=== PATIENT | female | born 2000 | race Caucasian/White ===

== ENCOUNTER 2019-10-20 10:52 | Emergency (ER) | payer OTHER, SELFPAY ==
[2019-10-20 10:57] VITALS: BP 128/80; PULSE 87; RESP 15; TEMP 36.8; O2SAT 98; BMI 34.9
--- NOTE | 2019-10-20 11:49 | DI.RAD.S_ITS ---
PROCEDURE: XR CHEST 2V INDICATIONS: alcoholic, vomiting blood, remote swallowed FB TECHNIQUE: 2 views of the chest were acquired. COMPARISON: None. FINDINGS: Surgical changes and devices: None. Lungs and pleura: Lungs are clear. No pleural effusions or pneumothorax. Mediastinum: Mediastinal contours are normal. Heart size is normal. Bones and chest wall: No suspicious bony abnormalities. Soft tissues appear unremarkable. IMPRESSION: No acute process. Dictated by: Joshua Schmitz M.D. on 10/20/2019 at 11:20 Approved by: Joshua Schmitz M.D. on 10/20/2019 at 11:20
--- NOTE | 2019-10-20 11:49 | DI.RAD.S_ITS ---
PROCEDURE: XR ABDOMEN MIN 2V INDICATIONS: vomiting blood, abdominal pain, left chest pain TECHNIQUE: 2 views of the abdomen were acquired. COMPARISON: None. FINDINGS: Surgical changes and devices: Intrauterine device. Bowel: No pneumoperitoneum. The bowel gas pattern is normal. Soft tissues: No masses; visualized solid organ contours appear normal in size. No suspicious abdominal calcifications. Bones: No suspicious bony abnormalities. IMPRESSION: No acute process. Dictated by: Joshua Schmitz M.D. on 10/20/2019 at 11:20 Approved by: Johsua Schmitz M.D. on 10/20/2019 at 11:21
[2019-10-20] MEDS: SODIUM CHLORIDE 0.9% 1,000 ML 1000 ML IV (12:07)
[2019-10-20] MEDS: ONDANSETRON 4 MG/2 ML INJ IV (12:07)
[2019-10-20 12:13] LABS: Add Manual Diff / Slide Review NO; Basophils Absolute Auto 0 /uL (0-100); Basophils Percent Auto 0.5 % (0-2); Eosinophils Absolute Auto 100 /uL (0-450); Eosinophils Percent Auto 0.9 % (2-4); Hematocrit 42.3 % (36-46); Hemoglobin 14.4 g/dL (12.0-16.0); Lymphocytes Absolute Auto 1800 /uL (1100-4500); Lymphocytes Percent Auto 23.5 % (25-40); Mean Corpuscular Hemoglobin 32.4 PG (26-34); Mean Corpuscular Volume 95.2 fL (80-100); Monocytes Absolute Auto 500 /uL (0-900); Monocytes Percent Auto 6.8 % (3-14); Neutrophils Absolute Auto 5100 /uL (1500-7000); Neutrophils Percent Auto 68.3 % (50-75); Platelet Count 215 X10^3/uL (150-400); Red Blood Cell Count 4.44 X10^6/uL (4.0-5.2); Red Cell Distribution Width 13.7 % (11.6-14.8); White Blood Cell Count 7.5 X10^3/uL (4.5-11.0)
[2019-10-20 12:20] LABS: PTT Partial Thromboplastin Tim 31 SECONDS (26.4-36.2)
[2019-10-20 12:21] LABS: Alanine Aminotransferase 21 IU/L (<35); Albumin 4.6 g/dL (3.5-5.0); Albumin Globulin Ratio 1.6 (1.0-2.8); Alkaline Phosphatase 50 U/L (38-126); Aspartate Aminotransferase 26 IU/L (14-36); BUN Creatinine Ratio 18.9 (6-22); Bilirubin Total 0.6 mg/dL (0.2-1.3); Blood Urea Nitrogen 10 mg/dL (7-17); Calcium 9.3 mg/dL (8.4-10.2); Carbon Dioxide 26 mmol/L (22-32); Chloride 108 mmol/L (98-107); Estimated Glomerular Filt Rate > 60.0 mL/min (>60); Ethanol (ETOH) < 10 mg/dL; Globulin 2.9 g/dL (1.7-4.1); Glucose 97 mg/dL (70-100); HEMOLYSIS < 15 (0-50); Lipase 46 U/L (23-300); Potassium 4.2 mmol/L (3.4-5.1); Sodium 138 mmol/L (137-145); Total Protein 7.5 g/dL (6.3-8.2)
[2019-10-20 12:37] VITALS: BP 123/66; PULSE 82; O2SAT 99
[2019-10-20 13:00] VITALS: BP 143/73; PULSE 77; O2SAT 99
[2019-10-20 13:30] VITALS: BP 133/61; PULSE 75; RESP 24; O2SAT 100
[2019-10-20 13:37] LABS: UR Morphine/Opiate cutoff 300 Negative (Negative); Ur Creatinine Normal (Normal); Ur Specific Gravity Normal (Normal); Urine Amphetamines Negative (Negative); Urine Barbiturates Negative (Negative); Urine Benzodiazepines Negative (Negative); Urine Cocaine Negative (Negative); Urine MDMA Negative (Negative); Urine Methadone Negative (Negative); Urine Methamphetamines Negative (Negative); Urine Oxycodone Negative (Negative); Urine Phencyclidine Negative (Negative); Urine Tetrahydrocannabinol Positive (Negative); Urine Tricyclic Antidepressant Negative (Negative); Urine pH Normal (Normal)
--- NOTE | 2019-10-20 14:08 | ED.SKABFB ---
HPI - Skin/Abscess/Foreign Bdy General Chief complaint: Skin/Abscess/Foreign Body Stated complaint: Swallowed object t-5 spitting blood Time Seen by Provider: 10/20/19 11:34 Source: patient Mode of arrival: Ambulatory Limitations: no limitations History of Present Illness HPI narrative: CC: I swallowed my septal ring. HPI: Patient is a 18-year-old female who states that she has been spitting up blood after swallowing her is nasal septal ring. She states that this morning the ring was gone. The patient states that he has been gone for 1 week. She thought that she swallowed it recently in last night. She woke up with pain in her right chest and that she was throwing up and spitting up blood. She describes the pain in her chest as being sharp and stabbing. When asked to quantify the amount of blood she became angry and stated that it was all blood. I asked the patient if she was intoxicated and drinking alcohol last night and she confirmed this. She states that she has been drinking for the last 2 days. The patient denies a history of liver disease or cirrhosis. She states that she used to drink daily and now drinks approximately 2 times per week. She denies ever being told that she had alcoholic hepatitis, cirrhosis. She denies any melena or she states that since waking up at 8:00 a.m. this morning she is vomited at least 7 times. hematochezia. She has had no diarrhea or pancreatitis. She denies a history of diabetes mellitus hypertension congenital heart disease or heart murmur. She admits to a dry unproductive cough mild shortness of breath. She has had no urinary symptoms and denies being . The police aguilar admits to smoking cigarettes and marijuana. Related Data Previous Rx's Medication Instructions Recorded ondansetron HCl [Zofran] 4 mg PO Q6H PRN #12 tab 10/20/19 pantoprazole [Protonix] 40 mg PO DAILY #20 tab 10/20/19 Allergies Allergy/AdvReac Type Severity Reaction Status Date / Time Penicillins Allergy Verified 10/20/19 11:00 Review of Systems Review of Systems Narrative: The patient's review of systems were all negative except those mentioned in the history of present illness. Patient History Social History Smoking Status: Current every day smoker Smoking Status: Current every day smoker alcohol intake frequency: a few times a week Substance Use Type: marijuana Exam Narrative Exam Narrative: PHYSICAL EXAM: CONSTITUTIONAL: Awake, Alert, Oriented, Coherent, in NAD. Does not appear toxic or ill. HEAD: AT/NC EENT: PERRL, FROM of eyes, no discharge, no nystagmus NOSE:No epistaxis or nasal drainage MOUTH:Oral mucosa is moist and pink, posterior pharynx is without erythema or exudate. There is no foreign body or ring noted in her posterior pharynx or throat NECK: Supple, no obvious JVD, Trachea is midline without stridor, no palpable LN. SPINE: Palpation of the cervical, Thoracic, Lumbar or Sacral spine reveals no gross deformity or tenderness. No CVA tenderness. THORAX: No deformity, retractions, chest wall tenderness. LUNGS: Clear, symmetrical breath sounds without respiratory distress. HEART: Normal heart tones, regular rhythm and rate without murmur. ABDOMEN: Do tender in the right upper quadrant greater than in the right lower quadrant. The patient has some mild right posterior costovertebral angle tenderness. There is no guarding rebound or rigidity noted. Bowel sounds are no EXTREMITIES: No edema, deformity, tenderness or cyanosis. SKIN: No rash, bruising, petechiae or purpura. NEURO: Awake, alert, oriented, conversive, cranial nerves II-XII are symmetrical , moves all 4 extremities and is ambulatory. MENTAL HEALTH: Does not appear anxious or depressed. Initial Vital Signs Initial Vital Signs: Vital Signs Temperature 98.2 F 10/20/19 10:57 Pulse Rate 87 10/20/19 10:57 Respiratory Rate 15 10/20/19 10:57 Blood Pressure 128/80 10/20/19 10:57 Pulse Oximetry 98 10/20/19 10:57 Course Course Course Narrative: 1400: Patient's chest x-ray revealed no acute process. No foreign body in her chest. Abdominal x-rays revealed no acute pathology or process no foreign body in her abdomen. She has normal gas patterns without any evidence of free air. The patient seemed to be mildly upset that I was asking questions about her drinking alcohol and that her alcohol contributed to her complaints. Orders Ordered: Discontinued Medications Sodium Chloride (Normal Saline 0.9%) 1,000 mls @ 1,000 mls/hr IV BOLUS ONE Stop: 10/20/19 12:52 Last Infusion: 10/20/19 13:30 Dose: 0 mls/hr Documented by: Admin: 10/20/19 12:07 Dose: 1,000 mls/hr Documented by: GENARO Ondansetron HCl (Zofran) 4 mg IV NOW ONE Stop: 10/20/19 11:50 Last Admin: 10/20/19 12:07 Dose: 4 mg Documented by: GENARO Pantoprazole Sodium (Protonix) 40 mg IV NOW ONE Stop: 10/20/19 14:10 Last Admin: 10/20/19 14:31 Dose: 40 mg Documented by: GENARO Vital Signs Vital signs: Vital Signs - 8 hr 10/20/19 10:57 10/20/19 12:37 10/20/19 13:00 Temperature 98.2 F Pulse Rate 87 82 77 Respiratory Rate 15 Blood Pressure 128/80 123/66 143/73 H Pulse Oximetry 98 99 99 10/20/19 13:30 10/20/19 14:39 Temperature Pulse Rate 75 82 Respiratory Rate 24 23 Blood Pressure 133/61 168/95 H Pulse Oximetry 100 99 MDM - Skin/Abscess/Foreign Bdy Medical Records Attestation: I reviewed the patient's medical records. Lab Data Attestation: I reviewed the patient's lab results. Result diagrams: 10/20/19 11:55 10/20/19 11:55 Labs: Lab Results 10/20/19 10/20/19 10/20/19 Range/Units 11:55 11:55 11:55 WBC (4.5-11.0) X10^3/uL RBC (4.0-5.2) X10^6/uL Hgb (12.0-16.0) g/dL Hct (36-46) % MCV (80-100) fL MCH (26-34) PG MCHC (30-36) % RDW (11.6-14.8) % Plt Count (150-400) X10^3/uL Neut % (Auto) (50-75) % Lymph % (Auto) (25-40) % Robeson % (Auto) (3-14) % Eos % (Auto) (2-4) % Baso % (Auto) (0-2) % Neut # (Auto) (3203-2882) /uL Lymph # (Auto) (7636-0785) /uL Robeson # (Auto) (0-900) /uL Eos # (Auto) (0-450) /uL Baso # (Auto) (0-100) /uL PT 11.0 (10.1-12.7) SECONDS INR 1.0 (0.9-1.3) APTT 31 (26.4-36.2) SECONDS Sodium 138 (137-145) mmol/L Potassium 4.2 (3.4-5.1) mmol/L Chloride 108 H (98-107) mmol/L Carbon Dioxide 26 (22-32) mmol/L BUN 10 (7-17) mg/dL Creatinine 0.53 (0.52-1.04) mg/dL Estimated GFR > 60.0 (>60) mL/min BUN/Creatinine Ratio 18.9 (6-22) Glucose 97 (70-100) mg/dL Lactate 1.0 (0.7-2.1) mmol/L Calcium 9.3 (8.4-10.2) mg/dL Total Bilirubin 0.6 (0.2-1.3) mg/dL AST 26 (14-36) IU/L ALT 21 (<35) IU/L Alkaline Phosphatase 50 (38-126) U/L Total Protein 7.5 (6.3-8.2) g/dL Albumin 4.6 (3.5-5.0) g/dL Globulin 2.9 (1.7-4.1) g/dL Albumin/Globulin Ratio 1.6 (1.0-2.8) Lipase 46 (23-300) U/L U Opiates 300ng/mL cut (Negative) Ur Oxycodone Screen (Negative) Urine Methadone Screen (Negative) Ur Barbiturates Screen (Negative) U Tricyclic Antidepress (Negative) Ur Phencyclidine Scrn (Negative) Ur Amphetamines Screen (Negative) U Methamphetamines Scrn (Negative) Ur MDMA Scrn (Ecstasy) (Negative) U Benzodiazepines Scrn (Negative) Urine Cocaine Screen (Negative) U Marijuana (THC) Screen (Negative) Ethyl Alcohol < 10 ( - 10) mg/dL 10/20/19 10/20/19 Range/Units 11:55 13:22 WBC 7.5 (4.5-11.0) X10^3/uL RBC 4.44 (4.0-5.2) X10^6/uL Hgb 14.4 (12.0-16.0) g/dL Hct 42.3 (36-46) % MCV 95.2 (80-100) fL MCH 32.4 (26-34) PG MCHC 34.0 (30-36) % RDW 13.7 (11.6-14.8) % Plt Count 215 (150-400) X10^3/uL Neut % (Auto) 68.3 (50-75) % Lymph % (Auto) 23.5 L (25-40) % Robeson % (Auto) 6.8 (3-14) % Eos % (Auto) 0.9 L (2-4) % Baso % (Auto) 0.5 (0-2) % Neut # (Auto) 5100 (9273-4961) /uL Lymph # (Auto) 1800 (5348-5601) /uL Robeson # (Auto) 500 (0-900) /uL Eos # (Auto) 100 (0-450) /uL Baso # (Auto) 0 (0-100) /uL PT (10.1-12.7) SECONDS INR (0.9-1.3) APTT (26.4-36.2) SECONDS Sodium (137-145) mmol/L Potassium (3.4-5.1) mmol/L Chloride (98-107) mmol/L Carbon Dioxide (22-32) mmol/L BUN (7-17) mg/dL Creatinine (0.52-1.04) mg/dL Estimated GFR (>60) mL/min BUN/Creatinine Ratio (6-22) Glucose (70-100) mg/dL Lactate (0.7-2.1) mmol/L Calcium (8.4-10.2) mg/dL Total Bilirubin (0.2-1.3) mg/dL AST (14-36) IU/L ALT (<35) IU/L Alkaline Phosphatase (38-126) U/L Total Protein (6.3-8.2) g/dL Albumin (3.5-5.0) g/dL Globulin (1.7-4.1) g/dL Albumin/Globulin Ratio (1.0-2.8) Lipase (23-300) U/L U Opiates 300ng/mL cut Negative (Negative) Ur Oxycodone Screen Negative (Negative) Urine Methadone Screen Negative (Negative) Ur Barbiturates Screen Negative (Negative) U Tricyclic Antidepress Negative (Negative) Ur Phencyclidine Scrn Negative (Negative) Ur Amphetamines Screen Negative (Negative) U Methamphetamines Scrn Negative (Negative) Ur MDMA Scrn (Ecstasy) Negative (Negative) U Benzodiazepines Scrn Negative (Negative) Urine Cocaine Screen Negative (Negative) U Marijuana (THC) Screen Positive H (Negative) Ethyl Alcohol ( - 10) mg/dL Point of Care Testing Test Results Negative Urine Dip Bedside Urine Glucose Negative Bedside Urine Bilirubin - Negative Bedside Urine Ketone - Negative Urine Specific [place] 1.010 Bedside Urine Occult Blood - Negative Bedside Urine pH 8.5 Bedside Urine Protein +/- 15 Bedside Urine Urobilinogen - Negative Bedside Urine Nitrite - Negative Bedside Urine Leukocytes - Negative Esterase Discharge Plan Departure Patient Disposition: Home Clinical Impression: Atypical chest pain, Carissa-Geller syndrome Hematemesis Qualifiers: Nausea presence: unspecified Qualified Code(s): K92.0 - Hematemesis Abdominal pain Qualifiers: Abdominal location: generalized Qualified Code(s): R10.84 - Generalized abdominal pain Discharge Date/Time: 10/20/19 15:01 Activity Restrictions/Additional Instructions: 1. Take the Protonix as prescribed to help reduce acid secretion 2. Take Zofran as prescribed to help with nausea and or vomiting. 3. If you start vomiting gross blood frequently or you develop bloody stools or black tarry stools you need to return to the emergency department or proceed to the nearest emergency department for further evaluation. 4. If you develop dizziness lightheadedness racing of your heart palpitations worsening shortness of breath or chest pain pass out you need to return to the emergency department for further evaluation. Prescriptions: New ondansetron HCl [Zofran] 4 mg tablet 4 mg PO Q6H PRN (Reason: nausea and vomiting) Qty: 12 RF: 0 pantoprazole [Protonix] 40 mg tablet,delayed release (DR/EC) 40 mg PO DAILY Qty: 20 RF: 0
[2019-10-20] MEDS: PANTOPRAZOLE 40 MG VIAL IV (14:31)
[2019-10-20 14:39] VITALS: BP 168/95; PULSE 82; RESP 23; O2SAT 99
== END 2019-10-20 15:01 | disposition home or self-care (01) ==
PROVIDERS: Emergency Provider Emergency Medicine
DX: R07.89 Other chest pain (principal); K22.6 Gastro-esophageal laceration-hemorrhage syndrome; R10.84 Generalized abdominal pain
CPT/HCPCS: 36415; 71046; 74019; 80053; 80305; 80320; 81003; 81025; 83605; 83690; 85025; 85610; 85730; 93005; 96361; 96374; 96375; 99284; C9113; J2405

== ENCOUNTER 2019-12-26 10:46 | Emergency (ER) | payer OTHER, SELFPAY ==
[2019-12-26] VITALS (8 sets, daily range): BP systolic 119–136; BP diastolic 58–78; PULSE 70–94; RESP 18; TEMP 36.6; O2SAT 96–100; BMI 34.9
[2019-12-26 11:36] LABS: Add Manual Diff / Slide Review NO; Basophils Absolute Auto 100 /uL (0-100); Basophils Percent Auto 0.7 % (0-2); Eosinophils Absolute Auto 100 /uL (0-450); Hematocrit 41.1 % (36-46); Hemoglobin 14.2 g/dL (12.0-16.0); Lymphocytes Absolute Auto 2800 /uL (1100-4500); Lymphocytes Percent Auto 38.5 % (25-40); Mean Corpuscular HGB Conc 34.5 % (30-36); Mean Corpuscular Hemoglobin 31.7 PG (26-34); Mean Corpuscular Volume 91.7 fL (80-100); Monocytes Absolute Auto 600 /uL (0-900); Monocytes Percent Auto 7.9 % (3-14); Neutrophils Absolute Auto 3800 /uL (1500-7000); Neutrophils Percent Auto 51.9 % (50-75); Platelet Count 234 X10^3/uL (150-400); Red Blood Cell Count 4.48 X10^6/uL (4.0-5.2); Red Cell Distribution Width 12.2 % (11.6-14.8); White Blood Cell Count 7.3 X10^3/uL (4.5-11.0)
[2019-12-26] MEDS: SODIUM CHLORIDE 0.9% 1,000 ML 1000 ML IV ×2 (11:38→13:14)
[2019-12-26] MEDS: ONDANSETRON 4 MG/2 ML INJ IV ×2 (11:38→14:28)
--- NOTE | 2019-12-26 11:42 | DI.RAD.S_ITS ---
PROCEDURE: XR ACUTE ABDOMEN SERIES INDICATIONS: n/v/d, dry cough, diffuse abd pain TECHNIQUE: One view chest and two views of the abdomen were acquired. COMPARISON: None. FINDINGS: Surgical changes and devices: Intrauterine device is seen.. Chest: Lungs are clear. Heart size is normal. No pleural effusions. No pneumoperitoneum. Abdomen: Bowel gas pattern is normal. No suspicious calcifications. Visualized solid organ contours appear normal. Bones: No suspicious bony lesions. IMPRESSION: No evidence of bowel obstruction or gross free air. No acute cardiopulmonary pathology. Dictated by: Anil Leslie M.D. on 12/26/2019 at 11:19 Approved by: Anil Leslie M.D. on 12/26/2019 at 11:28
[2019-12-26] MEDS: PANTOPRAZOLE 40 MG VIAL IV (11:46)
[2019-12-26 12:01] LABS: Alanine Aminotransferase 17 IU/L (<35); Albumin 4.6 g/dL (3.5-5.0); Albumin Globulin Ratio 1.6 (1.0-2.8); Alkaline Phosphatase 48 U/L (38-126); Aspartate Aminotransferase 24 IU/L (14-36); BUN Creatinine Ratio 22.8 (6-22); Bilirubin Total 0.9 mg/dL (0.2-1.3); Blood Urea Nitrogen 13 mg/dL (7-17); Calcium 9.2 mg/dL (8.4-10.2); Carbon Dioxide 27 mmol/L (22-32); Chloride 102 mmol/L (98-107); Estimated Glomerular Filt Rate > 60.0 mL/min (>60); Globulin 2.8 g/dL (1.7-4.1); Glucose 99 mg/dL (70-100); HEMOLYSIS < 15 (0-50); Lipase 66 U/L (23-300); Magnesium 1.9 mg/dL (1.6-2.3); Potassium 3.5 mmol/L (3.4-5.1); Sodium 137 mmol/L (137-145); Total Protein 7.4 g/dL (6.3-8.2)
[2019-12-26 12:09] LABS: Pregnancy Test Serum,Qual Negative (Negative)
--- NOTE | 2019-12-26 12:18 | ED_ITS ---
HPI - Nausea/Vomiting/Diarrhea <COURTNEY Benton-BC - Last Filed: 12/26/19 16:59> General Chief complaint: Nausea/Vomiting/Diarrhea Stated complaint: vomiting 2x days unable to keep anything down/ Time Seen by Provider: 12/26/19 11:26 Source: patient Mode of arrival: Ambulatory Limitations: no limitations History of Present Illness HPI Narrative: The patient is a 19-year-old female current smoker with history of abdominal pain who presents with a chief complaint of nausea vomiting and diarrhea for the past 2 days. She states that since her previous visit here, she stopped drinking alcohol, though had a few drinks on the . Then she has had trouble keeping anything down. She states that she has been vomiting so much that she has diarrhea at the same time the . She denies any focal abdominal pain, states that the whole thing as ?cramping.? Does not report any strange foods or eating prior to her illness. Denies any history of abdominal surgeries. 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 Related Data Previous Rx's Medication Instructions Recorded ondansetron HCl [Zofran] 4 mg PO Q6H PRN #12 tab 10/20/19 pantoprazole [Protonix] 40 mg PO DAILY #20 tab 10/20/19 ondansetron 4 mg PO Q6H PRN #14 tab 12/26/19 Allergies Allergy/AdvReac Type Severity Reaction Status Date / Time Penicillins Allergy Verified 12/26/19 11:05 Review of Systems <RICO Benton - Last Filed: 12/26/19 16:59> Review of Systems Narrative: GENERAL: See HPI HEENT: Denies sinus pain, ear pain, sore throat, difficulty swallowing, dizziness. RESPIRATORY: Denies dyspnea, cough, wheezing, hemoptysis, sputum. CARDIOVASCULAR: Denies chest pain, palpitations, orthopnea, edema, GASTROINTESTINAL: See HPI : Denies dysuria, frequency, incontinence, hematuria, urinary retention. MUSCULOSKELETAL: denies weakness, joint pain, or bony pain SKIN: Denies rash, skin lesions, or other NEUROLOGIC: Denies weakness, headache, numbness, change in speech, confusion, seizures, incoordination. PSYCHIATRIC: No concerning psychosocial issues. 12 point review of systems is negative except for those stated above Patient History <BETTY Benton - Last Filed: 12/26/19 16:59> Social History Smoking Status: Current every day smoker Smoking Status: Current every day smoker alcohol intake frequency: a few times a week Substance Use Type: marijuana Exam <BETTY Benton - Last Filed: 12/26/19 16:59> Narrative Exam Narrative: GENERAL: This is a well-nourished, well-developed patient, in no acute distress HEAD: Atraumatic. Normocephalic. No temporal or scalp tenderness. EYES: Pupils equal round and reactive. Extraocular motions intact. No scleral icterus. No injection or drainage. ENT: Nose without bleeding, purulent drainage or septal hematoma. Throat without erythema, tonsillar hypertrophy or exudate. Uvula midline. Airway patent. Slightly dry mucous membranes noted. NECK: Trachea midline. No JVD or lymphadenopathy. Supple, nontender, no meningeal signs. CARDIOVASCULAR: Regular rate and rhythm RESPIRATORY: Clear to auscultation. Breath sounds equal bilaterally. No wheezes, rales, or rhonchi. No cough. No increased respiratory effort. No accessory muscle use. GASTROINTESTINAL: Abdomen soft, diffusely tender with no guarding, active bowel sounds all 4 quadrants, nondistended. No hepato-splenomegaly, or palpable masses. No guarding. EXTREMITIES: No clubbing, cyanosis, or edema. No joint tenderness, effusion, or edema noted. BACK: Nontender without deformity or crepitance. No flank tenderness. NEURO: AOx3. SKIN: No rash or erythema on visible skin Initial Vital Signs Initial Vital Signs: Vital Signs Temperature 97.8 F 12/26/19 11:05 Pulse Rate 89 12/26/19 11:05 Respiratory Rate 18 12/26/19 11:05 Blood Pressure 127/78 12/26/19 11:05 Pulse Oximetry 98 12/26/19 11:05 <Marta Jiang MD - Last Filed: 12/27/19 10:59> Initial Vital Signs Initial Vital Signs: Vital Signs Temperature 97.8 F 12/26/19 11:05 Pulse Rate 89 12/26/19 11:05 Respiratory Rate 18 12/26/19 11:05 Blood Pressure 127/78 12/26/19 11:05 Pulse Oximetry 98 12/26/19 11:05 Scores <BETTY Benton - Last Filed: 12/26/19 16:59> GCS [place] coma scale eye opening: Spontaneous [place] coma scale verbal response: Orientated [place] coma scale motor response: Obey commands [place] coma scale total score: 15 Course <BETTY Benton - Last Filed: 12/26/19 16:59> Orders Ordered: Discontinued Medications Sodium Chloride (Normal Saline 0.9%) 1,000 mls @ 1,000 mls/hr IV BOLUS ONE Stop: 12/26/19 12:30 Last Infusion: 12/26/19 12:38 Dose: 0 mls/hr Documented by: Admin: 12/26/19 11:38 Dose: 1,000 mls/hr Documented by: GAVIOTA Sodium Chloride (Normal Saline 0.9%) 1,000 mls @ 1,000 mls/hr IV BOLUS ONE Stop: 12/26/19 13:37 Last Infusion: 12/26/19 14:23 Dose: 0 mls/hr Documented by: Admin: 12/26/19 13:14 Dose: 1,000 mls/hr Documented by: LAURA Ondansetron HCl (Zofran) 4 mg IV NOW ONE Stop: 12/26/19 11:32 Last Admin: 12/26/19 11:38 Dose: 4 mg Documented by: GAVIOTA Ondansetron HCl (Zofran) 4 mg IV NOW ONE Stop: 12/26/19 14:12 Last Admin: 12/26/19 14:28 Dose: 4 mg Documented by: KATHLEEN Pantoprazole Sodium (Protonix) 40 mg IV NOW ONE Stop: 12/26/19 11:39 Last Admin: 12/26/19 11:46 Dose: 40 mg Documented by: GAVIOTA Reevaluation(s) Reevaluation #1: Patient feeling improved at this point time. She states that she feels ?much much better.No abdominal pain to palpation at this point time. Discussed doing 2nd L of IV fluid and then p.o. trial. Time: 13:03 Vital Signs Vital signs: Vital Signs - 8 hr 12/26/19 11:05 12/26/19 11:42 12/26/19 12:00 Temperature 97.8 F Pulse Rate 89 78 79 Respiratory Rate 18 Blood Pressure 127/78 135/76 119/69 Pulse Oximetry 98 96 98 12/26/19 12:33 12/26/19 12:34 12/26/19 13:00 Temperature Pulse Rate 94 H 86 70 Respiratory Rate Blood Pressure 123/76 136/77 Pulse Oximetry 100 100 100 12/26/19 13:30 12/26/19 13:31 Temperature Pulse Rate 77 77 Respiratory Rate Blood Pressure 123/58 L Pulse Oximetry 99 99 <Marta Jiang MD - Last Filed: 12/27/19 10:59> Orders Ordered: Discontinued Medications Sodium Chloride (Normal Saline 0.9%) 1,000 mls @ 1,000 mls/hr IV BOLUS ONE Stop: 12/26/19 12:30 Last Infusion: 12/26/19 12:38 Dose: 0 mls/hr Documented by: Admin: 12/26/19 11:38 Dose: 1,000 mls/hr Documented by: GAVIOTA Sodium Chloride (Normal Saline 0.9%) 1,000 mls @ 1,000 mls/hr IV BOLUS ONE Stop: 12/26/19 13:37 Last Infusion: 12/26/19 14:23 Dose: 0 mls/hr Documented by: Admin: 12/26/19 13:14 Dose: 1,000 mls/hr Documented by: LAURA Ondansetron HCl (Zofran) 4 mg IV NOW ONE Stop: 12/26/19 11:32 Last Admin: 12/26/19 11:38 Dose: 4 mg Documented by: GAVIOTA Ondansetron HCl (Zofran) 4 mg IV NOW ONE Stop: 12/26/19 14:12 Last Admin: 12/26/19 14:28 Dose: 4 mg Documented by: KATHLEEN Pantoprazole Sodium (Protonix) 40 mg IV NOW ONE Stop: 12/26/19 11:39 Last Admin: 12/26/19 11:46 Dose: 40 mg Documented by: GAVIOTA Vital Signs Vital signs: Vital Signs - 8 hr 12/26/19 11:05 12/26/19 11:42 09/30/20 12:00 Temperature 97.8 F Pulse Rate 89 78 79 Respiratory Rate 18 Blood Pressure 127/78 135/76 119/69 Pulse Oximetry 98 96 98 12/26/19 12:33 12/26/19 12:34 12/26/19 13:00 Temperature Pulse Rate 94 H 86 70 Respiratory Rate Blood Pressure 123/76 136/77 Pulse Oximetry 100 100 100 12/26/19 13:30 12/26/19 13:31 Temperature Pulse Rate 77 77 Respiratory Rate Blood Pressure 123/58 L Pulse Oximetry 99 99 MDM - Nausea/Vomiting/Diarrhea <Merly Estrada, [employer] SURVEYING TECHNICIAN- - Last Filed: 12/26/19 16:59> Lab Data Attestation: I reviewed the patient's lab results. Result diagrams: 12/26/19 11:20 12/26/19 11:20 Labs: Lab Results 12/26/19 12/26/19 12/26/19 Range/Units 11:20 11:20 11:20 WBC 7.3 (4.5-11.0) X10^3/uL RBC 4.48 (4.0-5.2) X10^6/uL Hgb 14.2 (12.0-16.0) g/dL Hct 41.1 (36-46) % MCV 91.7 (80-100) fL MCH 31.7 (26-34) PG MCHC 34.5 (30-36) % RDW 12.2 (11.6-14.8) % Plt Count 234 (150-400) X10^3/uL Neut % (Auto) 51.9 (50-75) % Lymph % (Auto) 38.5 (25-40) % Casey % (Auto) 7.9 (3-14) % Eos % (Auto) 1.0 L (2-4) % Baso % (Auto) 0.7 (0-2) % Neut # (Auto) 3800 (6680-4344) /uL Lymph # (Auto) 2800 (2617-5828) /uL Casey # (Auto) 600 (0-900) /uL Eos # (Auto) 100 (0-450) /uL Baso # (Auto) 100 (0-100) /uL Sodium 137 (137-145) mmol/L Potassium 3.5 (3.4-5.1) mmol/L Chloride 102 (98-107) mmol/L Carbon Dioxide 27 (22-32) mmol/L BUN 13 (7-17) mg/dL Creatinine 0.57 (0.52-1.04) mg/dL Estimated GFR > 60.0 (>60) mL/min BUN/Creatinine Ratio 22.8 H (6-22) Glucose 99 (70-100) mg/dL Calcium 9.2 (8.4-10.2) mg/dL Magnesium 1.9 (1.6-2.3) mg/dL Total Bilirubin 0.9 (0.2-1.3) mg/dL AST 24 (14-36) IU/L ALT 17 (<35) IU/L Alkaline Phosphatase 48 (38-126) U/L Total Protein 7.4 (6.3-8.2) g/dL Albumin 4.6 (3.5-5.0) g/dL Globulin 2.8 (1.7-4.1) g/dL Albumin/Globulin Ratio 1.6 (1.0-2.8) Lipase 66 (23-300) U/L Serum , Qual (Negative) COVID-19 PCR (Negative) 12/26/19 12/26/19 Range/Units 11:20 11:25 WBC (4.5-11.0) X10^3/uL RBC (4.0-5.2) X10^6/uL Hgb (12.0-16.0) g/dL Hct (36-46) % MCV (80-100) fL MCH (26-34) PG MCHC (30-36) % RDW (11.6-14.8) % Plt Count (150-400) X10^3/uL Neut % (Auto) (50-75) % Lymph % (Auto) (25-40) % Casey % (Auto) (3-14) % Eos % (Auto) (2-4) % Baso % (Auto) (0-2) % Neut # (Auto) (0616-6674) /uL Lymph # (Auto) (7476-6654) /uL Casey # (Auto) (0-900) /uL Eos # (Auto) (0-450) /uL Baso # (Auto) (0-100) /uL Sodium (137-145) mmol/L Potassium (3.4-5.1) mmol/L Chloride (98-107) mmol/L Carbon Dioxide (22-32) mmol/L BUN (7-17) mg/dL Creatinine (0.52-1.04) mg/dL Estimated GFR (>60) mL/min BUN/Creatinine Ratio (6-22) Glucose (70-100) mg/dL Calcium (8.4-10.2) mg/dL Magnesium (1.6-2.3) mg/dL Total Bilirubin (0.2-1.3) mg/dL AST (14-36) IU/L ALT (<35) IU/L Alkaline Phosphatase (38-126) U/L Total Protein (6.3-8.2) g/dL Albumin (3.5-5.0) g/dL Globulin (1.7-4.1) g/dL Albumin/Globulin Ratio (1.0-2.8) Lipase (23-300) U/L Serum , Qual Negative (Negative) COVID-19 PCR Negative (Negative) Point of Care Testing Test Results Negative Urine Dip Bedside Urine Glucose Negative Bedside Urine Bilirubin - Negative Bedside Urine Ketone + 15 Urine Specific [place] 1.020 Bedside Urine Occult Blood - Negative Bedside Urine pH 6.0 Bedside Urine Protein - Negative Bedside Urine Urobilinogen +/- 1mg Bedside Urine Nitrite - Negative Bedside Urine Leukocytes - Negative Esterase Imaging Data Abdominal x-ray: Radiologist's Impression: [address] [place] [id number] XRay Report Signed Patient: Dominga Garvey#: [id number] : 2000Acct:[id number] Age/Sex: 19 / FDate of Service: 12/26/19 Loc: ED Accession Number: [id number] Procedure: XR acute abdomen series Ordering Provider: Merly Estrada PROCEDURE: XR ACUTE ABDOMEN SERIES INDICATIONS: n/v/d, dry cough, diffuse abd pain TECHNIQUE: One view chest and two views of the abdomen were acquired. COMPARISON: None. FINDINGS: Surgical changes and devices: Intrauterine device is seen.. Chest: Lungs are clear. Heart size is normal. No pleural effusions. No pneumoperitoneum. Abdomen: Bowel gas pattern is normal. No suspicious calcifications. Visualized solid organ contours appear normal. Bones: No suspicious bony lesions. IMPRESSION: No evidence of bowel obstruction or gross free air. No acute cardiopulmonary pathology. Dictated by: Anil Leslie M.D. on 12/26/2019 at 11:19 Approved by: Anil Leslie M.D. on 12/26/2019 at 11:28 MDM Narrative Medical decision making narrative: The patient is a 19-year-old female who presents with a chief complaint nausea and vomit eating. Her lab work is grossly within normal limits, no leukocytosis. She feels much improved after the above-stated therapies and is requesting to go home. She passed a p.o. trial of crackers and fluids prior to discharge. I discussed that we could do more to evaluate her, which would like to go home at this point time. Given that she does not have an acute abdomen, is afebrile and hemodynamically stable in the emergency department I am okay with this. She did get a prescription of Zofran, and I encouraged her to follow up with primary care provider in the next few days. Discussed at length strict return precautions including abdominal pain with fever, inability keep down fluids etcetera. The patient has no questions or concerns upon discharge and states understanding of return precautions as well as follow-up care. Work note given for the next few days. Patient test coronavirus negative in the emergency department. <Marta Jiang MD - Last Filed: 12/27/19 10:59> Lab Data Labs: Lab Results 12/26/19 12/26/19 12/26/19 Range/Units 11:20 11:20 11:20 WBC 7.3 (4.5-11.0) X10^3/uL RBC 4.48 (4.0-5.2) X10^6/uL Hgb 14.2 (12.0-16.0) g/dL Hct 41.1 (36-46) % MCV 91.7 (80-100) fL MCH 31.7 (26-34) PG MCHC 34.5 (30-36) % RDW 12.2 (11.6-14.8) % Plt Count 234 (150-400) X10^3/uL Neut % (Auto) 51.9 (50-75) % Lymph % (Auto) 38.5 (25-40) % Casey % (Auto) 7.9 (3-14) % Eos % (Auto) 1.0 L (2-4) % Baso % (Auto) 0.7 (0-2) % Neut # (Auto) 3800 (7568-0933) /uL Lymph # (Auto) 2800 (8134-4431) /uL Casey # (Auto) 600 (0-900) /uL Eos # (Auto) 100 (0-450) /uL Baso # (Auto) 100 (0-100) /uL Sodium 137 (137-145) mmol/L Potassium 3.5 (3.4-5.1) mmol/L Chloride 102 (98-107) mmol/L Carbon Dioxide 27 (22-32) mmol/L BUN 13 (7-17) mg/dL Creatinine 0.57 (0.52-1.04) mg/dL Estimated GFR > 60.0 (>60) mL/min BUN/Creatinine Ratio 22.8 H (6-22) Glucose 99 (70-100) mg/dL Calcium 9.2 (8.4-10.2) mg/dL Magnesium 1.9 (1.6-2.3) mg/dL Total Bilirubin 0.9 (0.2-1.3) mg/dL AST 24 (14-36) IU/L ALT 17 (<35) IU/L Alkaline Phosphatase 48 (38-126) U/L Total Protein 7.4 (6.3-8.2) g/dL Albumin 4.6 (3.5-5.0) g/dL Globulin 2.8 (1.7-4.1) g/dL Albumin/Globulin Ratio 1.6 (1.0-2.8) Lipase 66 (23-300) U/L Serum , Qual (Negative) COVID-19 PCR (Negative) 12/26/19 12/26/19 Range/Units 11:20 11:25 WBC (4.5-11.0) X10^3/uL RBC (4.0-5.2) X10^6/uL Hgb (12.0-16.0) g/dL Hct (36-46) % MCV (80-100) fL MCH (26-34) PG MCHC (30-36) % RDW (11.6-14.8) % Plt Count (150-400) X10^3/uL Neut % (Auto) (50-75) % Lymph % (Auto) (25-40) % Casey % (Auto) (3-14) % Eos % (Auto) (2-4) % Baso % (Auto) (0-2) % Neut # (Auto) (0493-4452) /uL Lymph # (Auto) (0490-8990) /uL Casey # (Auto) (0-900) /uL Eos # (Auto) (0-450) /uL Baso # (Auto) (0-100) /uL Sodium (137-145) mmol/L Potassium (3.4-5.1) mmol/L Chloride (98-107) mmol/L Carbon Dioxide (22-32) mmol/L BUN (7-17) mg/dL Creatinine (0.52-1.04) mg/dL Estimated GFR (>60) mL/min BUN/Creatinine Ratio (6-22) Glucose (70-100) mg/dL Calcium (8.4-10.2) mg/dL Magnesium (1.6-2.3) mg/dL Total Bilirubin (0.2-1.3) mg/dL AST (14-36) IU/L ALT (<35) IU/L Alkaline Phosphatase (38-126) U/L Total Protein (6.3-8.2) g/dL Albumin (3.5-5.0) g/dL Globulin (1.7-4.1) g/dL Albumin/Globulin Ratio (1.0-2.8) Lipase (23-300) U/L Serum , Qual Negative (Negative) COVID-19 PCR Negative (Negative) Point of Care Testing Test Results Negative Urine Dip Bedside Urine Glucose Negative Bedside Urine Bilirubin - Negative Bedside Urine Ketone + 15 Urine Specific [place] 1.020 Bedside Urine Occult Blood - Negative Bedside Urine pH 6.0 Bedside Urine Protein - Negative Bedside Urine Urobilinogen +/- 1mg Bedside Urine Nitrite - Negative Bedside Urine Leukocytes - Negative Esterase Discharge Plan Departure Patient Disposition: Home Clinical Impression: Dehydration Nausea & vomiting Qualifiers: Vomiting type: unspecified Vomiting Intractability: non-intractable Qualified Code(s): R11.2 - Nausea with vomiting, unspecified Discharge Date/Time: 12/26/19 14:34 Instructions: DI for Dehydration -- Adult, DI for Abdominal Pain-Adult, Nausea and Vomiting-Adult Activity Restrictions/Additional Instructions: Thank you for trusting us with your care today. As discussed, your lab work and imaging came back well. I sent in a prescription of nausea medication that has worked well for you to [facility]. Please be aware that this can be constipating. As discussed, please monitor for any signs of worsening such as abdominal pain with fever etcetera. Please come back to the emergency department for any acute concerns. Please follow-up with primary care provider in the next 48-72 hours. Your coronavirus test came back negative today. Prescriptions: New ondansetron 4 mg tablet,disintegrating 4 mg PO Q6H PRN (Reason: nausea and vomiting) Qty: 14 RF: 0 No Action ondansetron HCl [Zofran] 4 mg tablet 4 mg PO Q6H PRN (Reason: nausea and vomiting) Qty: 12 RF: 0 pantoprazole [Protonix] 40 mg tablet,delayed release (DR/EC) 40 mg PO DAILY Qty: 20 RF: 0 Referrals: Yasmin Taylor MD [Non-Staff] - Stand Alone Forms: Work Release Note <Marta Jiang MD - Last Filed: 12/27/19 10:59> [facility] Att[facility]: I was immediately available in the department for consultation throughout this patient's visit. I agree with documentation as above. Marta Jiang MD
[2019-12-26 12:24] LABS: COVID19 -Nasal RAPID Negative (Negative)
== END 2019-12-26 14:34 | disposition home or self-care (01) ==
PROVIDERS: Emergency Provider Nurse Practitioner Family
DX: R11.2 Nausea with vomiting, unspecified (principal); E86.0 Dehydration; Z03.818 Encounter for observation for suspected exposure to other biological agents ruled out
CPT/HCPCS: 36415; 74022; 80053; 81003; 81025; 83690; 83735; 84703; 85025; 87635; 96361; 96374; 96375; 96376; 99284; C9113; J2405